=== PATIENT | male | born 1980 | race Caucasian/White ===

== ENCOUNTER 2021-11-12 18:39 | Emergency (ER) | payer MEDICAID ==
[~2021-11-12] VITALS: Ht 185.4 cm; Wt 86.2 kg
[2021-11-12 20:13] LABS: HEMOGLOBIN 14.7 gm/dl (14.0-17.5); RED BLOOD COUNT 4.8 M/UL (4.20-5.50); WHITE BLOOD COUNT 19.4 K/UL (4.5-11.0)
== END 2021-11-12 22:02 | disposition left against medical advice (07) ==
LOC: ER1 18:39
PROVIDERS: Physician Assistant
DX: R07.9 Chest pain, unspecified (principal); F15.10 Other stimulant abuse, uncomplicated; F12.10 Cannabis abuse, uncomplicated; I10 Essential (primary) hypertension; F17.210 Nicotine dependence, cigarettes, uncomplicated
CPT/HCPCS: 71045; 80053; 80307; 81001; 82550; 82553; 84484; 85025; 86140; 87040; 93005; 96374; 99283; J0696; J1200; J3370; J7070